=== PATIENT | female | born 1955 | race Caucasian/White ===

== ENCOUNTER → 2016-08-08 | Outpatient (CLI) | payer OTHER ==
[2016-08-08 15:24] LABS: Basophils % (A) 1 %; CH 29.8; CHCM 31.9; Eosinophils # (A) 0.2 k/uL (0-0.7); Eosinophils % (A) 3 %; HCT 39.4 % (34.0-46.0); HDW 2.43; HGB 12.4 gm/dL (11.4-16.0); Luc # (Auto) 0.19; Luc % (Auto) 4; Lymphocytes # (A) 1.7 k/uL (1.0-4.8); Lymphocytes % (A) 32 %; MCH 29.7 pg (25.0-35.0); MCHC 31.6 g/dL (31.0-37.0); MCV 94.1 fL (80.0-100.0); Mean Platelet Volume 8.1; Monocytes # (A) 0.4 k/uL (0-1.0); Monocytes % (A) 7 %; Neutrophils # (A) 2.8 k/uL (1.3-7.7); Neutrophils % (A) 54 %; RBC 4.18 m/uL (3.80-5.40); RDW 12.4 % (11.5-15.5); WBC 5.2 k/uL (3.8-10.6); WBC (Perox) 5.35
== END | disposition home or self-care (01) ==
LOC: LABWHC1 14:23
PROVIDERS: ATTEND Psychiatry & Neurology Psychiatry
DX: E03.9 Hypothyroidism, unspecified (principal); D64.9 Anemia, unspecified
CPT/HCPCS: 36415; 84439; 84443; 84481; 85025